=== PATIENT | male | born 1945 | race Caucasian/White ===

== ENCOUNTER 2017-11-17 09:07 | Inpatient (IN) ==
[2017-11-17 10:06] LABS: Baso % (Auto) 0.2 % (0.0-2.0); Eos % (Auto) 0.1 % (0.0-4.0); Hematocrit 35.1 % (39.0-51.0); Hemoglobin 11.7 gm/dL (13.0-17.0); Lymph # (Auto) 0.6 th/mm3 (1.0-4.8); Lymph % (Auto) 7.9 % (9.0-44.0); Mean Corpuscular HGB Conc 33.5 % (32.0-36.0); Mean Corpuscular Hemoglobin 31.2 pg (27.0-34.0); Mean Corpuscular Volume 93.4 fL (80.0-100.0); Mean Platelet Volume 8.2 fL (7.0-11.0); Mono # (Auto) 1.2 th/mm3 (0.0-0.9); Mono % (Auto) 16.3 % (0.0-8.0); Neut # (Auto) 5.5 th/mm3 (1.8-7.7); Neut % (Auto) 75.5 % (16.0-70.0); Platelet Count 179 th/mm3 (150-450); Red Blood Count 3.76 mil/mm3 (4.50-5.90); Red Cell Distribution Width 13.2 % (11.6-17.2); White Blood Count 7.3 th/mm3 (4.0-11.0)
--- NOTE | 2017-11-17 10:13 | XR ---
EXAM DATE: 11/17/2017 12:00 AM EDT AGE/SEX: 72 years / Male INDICATIONS: Fever. states her has been weak and running a fever along with low urine o utput for 3 days. CLINICAL DATA: This is the patient's initial encounter. Patient reports that signs and symptoms have been present for 3 days and indicates a pain score of Nonresponsive. MEDICAL/SURGICAL HISTORY: None. Non-responsive. COMPARISON: No prior exams available for comparison. FINDINGS: Portable AP view of the chest demonstrates a normal-sized cardiac silhouette. Linear density overlies the left lower lung zone. Mild airspace opacity overlies the left lower lung zone and retrocardiac r egion. No pleural effusion or pneumothorax is identified. The bones and soft tissues demonstrate no a cute finding. There are degenerative changes of the thoracic spine. CONCLUSION: Mild patchy airspace opacity in the left lower lung zone. Given the clinical history, this could repr esent an infectious process. Electronically signed by: Mekhi Krause MD 11/17/2017 10:12 AM EDT
[2017-11-17 10:17] LABS: Amorphous Sediment,Urine Few /hpf; Bacteria,Urine Occasional /hpf; Bilirubin,Urine Negative (Negative); Clarity,Urine Cloudy (Clear); Color,Urine Yellow (Yellw/Straw); Glucose,Urine (UA) Negative (Negative); Leukocyte Esterase,Urine Negative (Negative); Mucus,Urine Few /lpf (Occasional); Nitrite,Urine Negative (Negative)
[2017-11-17 10:34] LABS: Alanine Aminotransferase 74 U/L (12-78); Anion Gap 12 meq/L (5-15); Aspartate Aminotransferase 112 U/L (15-37); Blood Urea Nitrogen 29 mg/dL (7-18); Calcium 8.4 mg/dL (8.5-10.1); Carbon Dioxide 23.9 meq/L (21.0-32.0); Chloride 98 meq/L (98-107); Glomerular Filtration Rate 32 mL/min (>89); Glucose,Random 125 mg/dL (74-106); Potassium 3.4 meq/L (3.5-5.1); Sodium 134 meq/L (136-145)
[2017-11-17 10:35] LABS: Alkaline Phosphatase 88 U/L (45-117); Total Protein 6.9 g/dL (6.4-8.2)
[2017-11-17] MEDS ORDERED: Sod Chloride 0.9% Inj 1,000 ML IV.SIG ONE (10:46)
--- NOTE | 2017-11-17 11:09 | ED ---
HPI General Chief complaint: Weakness Stated complaint: Fever Time Seen by Provider: 11/17/17 09:42 Source: patient and family Mode of arrival: ambulatory Limitations: no limitations History of Present Illness HPI Narrative: Per patient's family and patient he has had for fever low-grade 1011-2 for the last 2-3 days, is also being involved with a productive cough of yellowish sputum over the last 3 days as well, the patient has also been experiencing urgency and frequency as well as some urinary dribbling as well. Primary care is [facility] in [place] Patient denies any allergies to medications Past medical history consist of hypercholesterolemia CVA x2, ruptured disc Related Data Home Medications Medication Instructions Recorded Confirmed aspirin-dipyridamole 1 cap PO BID 11/17/17 11/17/17 atorvastatin 40 mg PO DAILY 11/17/17 11/17/17 Previous Rx's Medication Instructions Recorded Saccharomyces boulardii [Florastor] 250 mg PO BID 30 Days #60 cap 11/19/17 Allergies Allergy/AdvReac Type Severity Reaction Status Date / Time No Known Allergies Allergy Unverified 11/17/17 09:28 Review of Systems ROS: all other systems reviewed are negative [facility] Medical History Medical History CVA (cerebral vascular accident) (Acute) Cervical disc disease (Acute) Hyperlipidemia (Acute) Surgical History Surgical History H/O cervical spine surgery (Acute) Family History Family History Other Family history reviewed with no changes Social History Social History Smoking Status: Former smoker How Often Do You Have a Drink Containing Alcohol: 2 to 4 times a month Recent Travel in [facility] within the Last 8 Weeks: No Recent Out of Country Travel within the Last 8 Weeks: No Immunization History Tetanus Immunization: Unsure Exam Narrative Exam Narrative: GENERAL: Elderly male in no acute distress SKIN: Focused skin assessment warm/dry. HEAD: Atraumatic. Normocephalic. EYES: Pupils equal and round. No scleral icterus. No injection or drainage. ENT: No nasal bleeding or discharge. Mucous membranes pink and moist. NECK: Trachea midline. No JVD. CARDIOVASCULAR: Regular rate and rhythm. No murmur appreciated. RESPIRATORY: No accessory muscle use., Left lower lobe crackles appreciated on auscultation. Tidal volume expansion appears equal bilaterally GASTROINTESTINAL: Abdomen soft, non-tender, nondistended.... No rebound guarding or rigidity MUSCULOSKELETAL: No obvious deformities. No clubbing. No cyanosis. No edema. NEUROLOGICAL: Awake and alert. No obvious cranial nerve deficits. Motor grossly within normal limits. Normal speech. PSYCHIATRIC: Appropriate mood and affect; insight and judgment normal. Course Initial Documented Vital Signs Temperature 100.4 F H 11/17/17 09:18 Pulse Rate 86 11/17/17 09:18 Respiratory Rate 18 11/17/17 09:18 Blood Pressure 177/74 H 11/17/17 09:18 Pulse Oximetry 95 11/17/17 09:18 Last Documented Vital Signs Temperature 97.5 F L 11/19/17 16:00 Pulse Rate 70 11/19/17 16:00 Respiratory Rate 20 11/19/17 16:00 Blood Pressure 130/64 11/19/17 16:00 Pulse Oximetry 96 11/19/17 16:00 Medical Decision Making [facility] Narrative Medical decision making narrative: No leukocytosis, no anemia, no abnormal platelet count, no major left shift Chemistry shows normal electrolytes, however abnormal creatinine of 2.04 no previous ones to compare to, AST of 112 2 and ALT of 74 with normal bilirubin and normal alk phos UA consistent with a UTI Chest x-ray read by radiologist shows mild patchy airspace opacity in the left lower lung will admit for obs to [facility] Medical Screen Exam Complete: Yes Emergency Medical Condition: Yes Differential Diagnosis Differential Diagnosis: UTI versus pneumonia versus flu versus sepsis versus electrolyte abnormalities versus Lab Data Result diagrams: 11/19/17 05:25 11/19/17 05:25 Lab Results 11/17/17 11/17/17 11/17/17 Range/Units 09:29 09: 09:29 WBC 7.3 (4.0-11.0) th/mm3 RBC 3.76 L (4.50-5.90) mil/mm3 Hgb 11.7 L (13.0-17.0) gm/dL Hct 35.1 L (39.0-51.0) % MCV 93.4 (80.0-100.0) fL MCH 31.2 (27.0-34.0) pg MCHC 33.5 (32.0-36.0) % RDW 13.2 (11.6-17.2) % Plt Count 179 (150-450) th/mm3 MPV 8.2 (7.0-11.0) fL Neut % (Auto) 75.5 H (16.0-70.0) % Lymph % (Auto) 7.9 L (9.0-44.0) % [place] % (Auto) 16.3 H (0.0-8.0) % Eos % (Auto) 0.1 (0.0-4.0) % Baso % (Auto) 0.2 (0.0-2.0) % Neut # (Auto) 5.5 (1.8-7.7) th/mm3 Lymph # (Auto) 0.6 L (1.0-4.8) th/mm3 [place] # (Auto) 1.2 H (0.0-0.9) th/mm3 Eos # (Auto) 0.0 (0.0-0.4) th/mm3 Baso # (Auto) 0.0 (0.0-0.2) th/mm3 WBC Differential . Differential Comment Auto diff final Sodium 134 L (136-145) meq/L Potassium 3.4 L (3.5-5.1) meq/L Chloride 98 (98-107) meq/L Carbon Dioxide 23.9 (21.0-32.0) meq/L Anion Gap 12 (5-15) meq/L BUN 29 H (7-18) mg/dL Creatinine 2.04 H (0.60-1.30) mg/dL Estimated GFR 32 L (>89) mL/min Random Glucose 125 H (74-106) mg/dL Lactic Acid 1.2 (0.4-2.0) mmol/L Calcium 8.4 L (8.5-10.1) mg/dL Magnesium (1.5-2.5) mg/dL Total Bilirubin 0.7 (0.2-1.0) mg/dL AST 112 H (15-37) U/L ALT 74 (12-78) U/L Alkaline Phosphatase 88 (45-117) U/L Total Protein 6.9 (6.4-8.2) g/dL Albumin 3.0 L (3.4-5.0) g/dL Urine Color (Yellw/Straw) Urine Clarity (Clear) Urine pH (5.0-8.5) Ur Specific [place] (1.002-1.035) Urine Protein (Neg-Trace) mg/dL Urine Glucose (UA) (Negative) mg/dL Urine Ketones (Negative) mg/dL Urine Occult Blood (Negative) Urine Nitrate (Negative) Urine Bilirubin (Negative) Urine Urobilinogen (Less than 2) mg/dL Ur Leukocyte Esterase (Negative) Urine RBC (0-3) /hpf Urine WBC (0-5) /hpf Amorphous Sediment (None) /hpf Urine Bacteria (None) /hpf Urine Mucus (Occasional) /lpf Micro UA Comment Ur Microscopic Review Urine Culture Comments 11/17/17 11/18/17 11/18/17 Range/Units 09:29 05:08 05:08 WBC 5.9 (4.0-11.0) th/mm3 RBC 3.67 L (4.50-5.90) mil/mm3 Hgb 11.4 L (13.0-17.0) gm/dL Hct 34.2 L (39.0-51.0) % MCV 93.2 (80.0-100.0) fL MCH 31.2 (27.0-34.0) pg MCHC 33.4 (32.0-36.0) % RDW 13.2 (11.6-17.2) % Plt Count 165 (150-450) th/mm3 MPV 8.1 (7.0-11.0) fL Neut % (Auto) 73.3 H (16.0-70.0) % Lymph % (Auto) 10.8 (9.0-44.0) % [place] % (Auto) 15.6 H (0.0-8.0) % Eos % (Auto) 0.1 (0.0-4.0) % Baso % (Auto) 0.2 (0.0-2.0) % Neut # (Auto) 4.3 (1.8-7.7) th/mm3 Lymph # (Auto) 0.6 L (1.0-4.8) th/mm3 [place] # (Auto) 0.9 (0.0-0.9) th/mm3 Eos # (Auto) 0.0 (0.0-0.4) th/mm3 Baso # (Auto) 0.0 (0.0-0.2) th/mm3 WBC Differential . Differential Comment Auto diff final Sodium 133 L (136-145) meq/L Potassium 3.1 L (3.5-5.1) meq/L Chloride 98 (98-107) meq/L Carbon Dioxide 22.5 (21.0-32.0) meq/L Anion Gap 13 (5-15) meq/L BUN 25 H (7-18) mg/dL Creatinine 1.79 H (0.60-1.30) mg/dL Estimated GFR 38 L (>89) mL/min Random Glucose 124 H (74-106) mg/dL Lactic Acid (0.4-2.0) mmol/L Calcium 7.7 L (8.5-10.1) mg/dL Magnesium (1.5-2.5) mg/dL Total Bilirubin 0.5 (0.2-1.0) mg/dL AST 117 H (15-37) U/L ALT 77 (12-78) U/L Alkaline Phosphatase 82 (45-117) U/L Total Protein 6.6 (6.4-8.2) g/dL Albumin 2.7 L (3.4-5.0) g/dL Urine Color Yellow (Yellw/Straw) Urine Clarity Cloudy H (Clear) Urine pH 5.0 (5.0-8.5) Ur Specific [place] 1.010 (1.002-1.035) Urine Protein 100 H (Neg-Trace) mg/dL Urine Glucose (UA) Negative (Negative) mg/dL Urine Ketones Trace H (Negative) mg/dL Urine Occult Blood Large H (Negative) Urine Nitrate Negative (Negative) Urine Bilirubin Negative (Negative) Urine Urobilinogen Less than 2 (Less than 2) mg/dL Ur Leukocyte Esterase Negative (Negative) Urine RBC 3 (0-3) /hpf Urine WBC 1 (0-5) /hpf Amorphous Sediment Few H (None) /hpf Urine Bacteria Occasional H (None) /hpf Urine Mucus Few H (Occasional) /lpf Micro UA Comment Culture not ind Ur Microscopic Review Not Reportable Urine Culture Comments Culture not ind 11/18/17 11/19/17 11/19/17 Range/Units 05:08 05:25 05:25 WBC 5.7 (4.0-11.0) th/mm3 RBC 3.54 L (4.50-5.90) mil/mm3 Hgb 11.1 L (13.0-17.0) gm/dL Hct 32.8 L (39.0-51.0) % MCV 92.5 (80.0-100.0) fL MCH 31.2 (27.0-34.0) pg MCHC 33.8 (32.0-36.0) % RDW 13.1 (11.6-17.2) % Plt Count 184 (150-450) th/mm3 MPV 8.2 (7.0-11.0) fL Neut % (Auto) (16.0-70.0) % Lymph % (Auto) (9.0-44.0) % [place] % (Auto) (0.0-8.0) % Eos % (Auto) (0.0-4.0) % Baso % (Auto) (0.0-2.0) % Neut # (Auto) (1.8-7.7) th/mm3 Lymph # (Auto) (1.0-4.8) th/mm3 [place] # (Auto) (0.0-0.9) th/mm3 Eos # (Auto) (0.0-0.4) th/mm3 Baso # (Auto) (0.0-0.2) th/mm3 WBC Differential Differential Comment Sodium 139 (136-145) meq/L Potassium 3.9 D (3.5-5.1) meq/L Chloride 108 H D (98-107) meq/L Carbon Dioxide 21.6 (21.0-32.0) meq/L Anion Gap 9 (5-15) meq/L BUN 23 H (7-18) mg/dL Creatinine 1.47 H (0.60-1.30) mg/dL Estimated GFR 47 L (>89) mL/min Random Glucose 122 H (74-106) mg/dL Lactic Acid (0.4-2.0) mmol/L Calcium 7.8 L (8.5-10.1) mg/dL Magnesium 2.0 (1.5-2.5) mg/dL Total Bilirubin (0.2-1.0) mg/dL AST (15-37) U/L ALT (12-78) U/L Alkaline Phosphatase (45-117) U/L Total Protein (6.4-8.2) g/dL Albumin (3.4-5.0) g/dL Urine Color (Yellw/Straw) Urine Clarity (Clear) Urine pH (5.0-8.5) Ur Specific [place] (1.002-1.035) Urine Protein (Neg-Trace) mg/dL Urine Glucose (UA) (Negative) mg/dL Urine Ketones (Negative) mg/dL Urine Occult Blood (Negative) Urine Nitrate (Negative) Urine Bilirubin (Negative) Urine Urobilinogen (Less than 2) mg/dL Ur Leukocyte Esterase (Negative) Urine RBC (0-3) /hpf Urine WBC (0-5) /hpf Amorphous Sediment (None) /hpf Urine Bacteria (None) /hpf Urine Mucus (Occasional) /lpf Micro UA Comment Ur Microscopic Review Urine Culture Comments Imaging Data Radiologist's impression: Chest X-Ray 11/17/17 00:00 CONCLUSION: Mild patchy airspace opacity in the left lower lung zone. Given the clinical history, this could represent an infectious process. Discharge Plan Discharge Disposition Patient Disposition: 30 Still Patient Discharge Condition Condition: Stable Discharge Order Discharge Orders: Discharge Order (Routine); Ordered 11/19/17 Ordered By: Junior Lopez Discharge Details Anticipated Discharge Date: 11/19/17 Discharge Comment: patient will need too seek medical attention if experiences abd pain or diarrhea continues more than 3 days. Diagnosis: Acute UTI, Left lower lobe pneumonia, Acute renal insufficiency Physicians Team ED Provider: Suraj Palumbo Primary Care Provider: UNKNOWN, Attending Provider: Junior Lopez Other Providers: [employer] Status ED Status: Left Department Discharge Information Discharge Date/Time: 11/17/17 15:27
[2017-11-17] MEDS ORDERED: Bisacodyl 10 MG Supp RECTAL PRN (14:06)
[2017-11-17] MEDS ORDERED: Azithromycin 250 MG Tablet PO SCH (14:15)
[2017-11-17] MEDS ORDERED: Sodium Chloride 0.9% 2 ML Flush PRN IV.FLUSH (14:19)
--- NOTE | 2017-11-17 14:36 | P.HPIM ---
[facility] Chief Complaint: Weakness, urinary frequency, cough History of Present Illness: 72-year-old male with a medical history significant for cervical disc disease, CVA who presented to the emergency room with his complaining of worsening weakness, chills, cough, and urinary frequency. Patient is a poor historian. He deferred the history to his . Symptoms started about for 5 days ago. Over the past couple of days, the weakness has gotten worse with persistent urinary frequency. He has had cold sweats. He does have a cough but denies shortness of breath currently. He denies any chest pain. - Diagnosis (1) Acute UTI (2) Left lower lobe pneumonia (3) Acute renal insufficiency Inpatient Certification: I certify that the inpatient services were ordered in accordance with Medicare regulations governing the order. 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 - Medical History Medical History: Medical History (Last Updated 11/17/17 @ 15:02 by Colleen Parkinson MD) CVA (cerebral vascular accident) Cervical disc disease Hyperlipidemia - Surgical History Surgical History: Surgical History (Last Updated 11/17/17 @ 15:03 by Colleen Parkinson MD) H/O cervical spine surgery - Family History Family History: Family History (Last Updated 11/17/17 @ 15:04 by Colleen Parkinson MD) Other Family history reviewed with no changes - Social History I have reviewed the patient's Social History: Yes - Tobacco History Tobacco Use In Past 30 Days: No Smoking Status: Former smoker - Alcohol History How Often Do You Have a Drink Containing Alcohol: 2 to 4 times a month - Travel History Recent Travel in the [place] Within the Last 8 Weeks: No Recent Travel Out of the Country Within the Last 8 Weeks: No - Immunization History Tetanus Immunization: Unsure Medications and Allergies Active Medications: Active Medications Al Hydroxide/Mg Hydroxide (Milk Of Magnmargie Liq) 30 ml PO Q12H PRN PRN Reason: Mild Constipation Atorvastatin Calcium (Lipitor) 40 mg PO DAILY NANCY Azithromycin (Zithromax) 500 mg PO DAILY [facility] Bisacodyl (Dulcolax Supp) 10 mg RECTAL DAILY PRN PRN Reason: SEVERE CONSITIPATION Dipyridamole/Aspirin (Aggrenox) 1 cap PO BID [facility] Heparin Sodium (Porcine) (Heparin Inj) 5,000 units SQ Q12HR [facility] Sodium Chloride (Ns Inj) 1,000 mls @ 100 mls/hr IV.CONT .Q10H NANCY Stop: 11/18/17 14:14 Ceftriaxone Sodium 1,000 mg/ (Sodium Chloride) 100 mls @ 200 mls/hr IV.SIG Q24H [facility] Lactulose (Lactulose Liq) 30 ml PO DAILY PRN PRN Reason: SEVERE CONSITIPATION Lisinopril (Prinivil) 5 mg PO DAILY [facility] Ondansetron HCl (Zofran Inj) 4 mg IV.PUSH Q6H PRN PRN Reason: NAUSEA OR VOMITING Sennosides (Senokot) 17.2 mg PO Q12H PRN PRN Reason: Moderate Constipation Sodium Chloride (Ns Flush) 2 ml IV.FLUSH BID [facility] Sodium Chloride (Ns Flush) 2 ml IV.FLUSH PRN PRN PRN Reason: FLUSH AFTER USING IV ACCESS Allergies Allergy/AdvReac Type Severity Reaction Status Date / Time No Known Allergies Allergy Unverified 11/17/17 09:28 Home Medications Medication Instructions Recorded Confirmed Type aspirin-dipyridamole 1 cap PO BID 11/17/17 11/17/17 History atorvastatin 40 mg PO DAILY 11/17/17 11/17/17 History lisinopril 5 mg PO DAILY 11/17/17 11/17/17 History Exam Vital signs: Vital Signs 11/17/17 09:18 11/17/17 11:27 11/17/17 13:25 Temperature 100.4 F H 99.7 F H Pulse Rate 86 90 85 Respiratory Rate 18 18 18 Blood Pressure 177/74 H 166/85 H 168/79 H Pulse Oximetry 95 Intake & Output 11/16/17 11/17/17 11/17/17 18:59 06:59 18:59 Intake Total 1100 / 1100 Balance 1100 / 1100 Weight 77.111 kg Intake: IV 1100 / 1100 NS Inj 1,000 ML @ Wide Open IV. 1000 / 1000 SIG BOLUS ONE Rx#:[id number] Rocephin Inj 2,000 MG In NS Inj 100 / 100 100 ML @ 200 mls/hr IV.SIG ONCE ONE Rx#:[id number] Narrative: GENERAL: Patient is in no acute distress. He defers history to his . CARDIOVASCULAR: Normal rate and regular rhythm without murmurs, gallops, or rubs. RESPIRATORY: Good respiratory efforts. Rhonchi on the left base otherwise clear to auscultation. GASTROINTESTINAL: Abdomen soft, non-tender, non-distended. Normal active bowel sounds MUSCULOSKELETAL: Extremities without cyanosis, or edema. NEURO: Alert & Oriented x4 to person, place, time, situation. Moves all ext x4. Generalized weakness PSYCH: Appropriate mood and affect. Results - Labs CBC & Chem 7: 11/17/17 09:29 11/17/17 09:29 Labs: Short CBC 11/17/17 Range/Units 09:29 WBC 7.3 (4.0-11.0) th/mm3 Hgb 11.7 L (13.0-17.0) gm/dL Hct 35.1 L (39.0-51.0) % Plt Count 179 (150-450) th/mm3 BMP 11/17/17 09:29 Sodium 134 L Potassium 3.4 L Chloride 98 Carbon Dioxide 23.9 BUN 29 H Creatinine 2.04 H Calcium 8.4 L Liver Function 11/17/17 Range/Units 09:29 Total Bilirubin 0.7 (0.2-1.0) mg/dL AST 112 H (15-37) U/L ALT 74 (12-78) U/L Alkaline Phosphatase 88 (45-117) U/L Albumin 3.0 L (3.4-5.0) g/dL Urine 11/17/17 Range/Units 09:29 Urine Color Yellow (Yellw/Straw) Urine Clarity Cloudy H (Clear) Urine pH 5.0 (5.0-8.5) Ur Specific [place] 1.010 (1.002-1.035) Urine Protein 100 H (Neg-Trace) mg/dL Urine Glucose (UA) Negative (Negative) mg/dL - Imaging Impressions Chest X-Ray 11/17/17 00:00 CONCLUSION: Mild patchy airspace opacity in the left lower lung zone. Given the clinical history, this could represent an infectious process. Caprini VTE Risk Assessment Caprini VTE Risk Assessment: Moderate/High Risk (score >= 2) Caprini Risk Assessment Model: Point Value = 1 Point Value = 2 Point Value = 3 Point Value = 5 Age 41-60 Minor surgery BMI > 25 kg/m2 Swollen legs Varicose veins or History of unexplained or recurrent spontaneous Oral contraceptives or hormone replacement Sepsis (< 1 month) Serious lung disease, including pneumonia (< 1 month) Abnormal pulmonary function Acute myocardial infarction Congestive heart failure (< 1 month) History of inflammatory bowel disease Medical patient at bed rest Age 61-74 Arthroscopic surgery Major open surgery (> 45 min) Laparoscopic surgery (> 45 min) Malignancy Confined to bed (> 72 hours) Immobilizing plaster cast Central venous access Age >= 75 History of VTE Family history of VTE Factor V Leiden Prothrombin 10723C Lupus anticoagulant Anticardiolipin antibodies Elevated serum homocysteine Heparin-induced thrombocytopenia Other congenital or acquired thrombophilia Stroke (< 1 month) Elective arthroplasty Hip, pelvis, or leg fracture Acute spinal cord injury (< 1 month) Prophylaxis Regimen: Total Risk Factor Score Risk Level Prophylaxis Regimen 0-1 Low Early ambulation 2 Moderate Order ONE of the following: *Sequential Compression Device (SCD) *Heparin 5000 units SQ BID 3-4 Higher Order ONE of the following medications: *Heparin 5000 units SQ TID *Enoxaparin/Lovenox 40 mg SQ daily (WT < 150 kg, CrCl > 30 mL/min) *Enoxaparin/Lovenox 30 mg SQ daily (WT < 150 kg, CrCl > 10-29 mL/min) *Enoxaparin/Lovenox 30 mg SQ BID (WT < 150 kg, CrCl > 30 mL/min) AND/OR *Sequential Compression Device (SCD) 5 or more Highest Order ONE of the following medications: *Heparin 5000 units SQ TID (Preferred with Epidurals) *Enoxaparin/Lovenox 40 mg SQ daily (WT < 150 kg, CrCl > 30 mL/min) *Enoxaparin/Lovenox 30 mg SQ daily (WT < 150 kg, CrCl > 10-29 mL/min) *Enoxaparin/Lovenox 30 mg SQ BID (WT < 150 kg, CrCl > 30 mL/min) AND *Sequential Compression Device (SCD) Assessment and Plan - Assessment (1) Acute UTI Code(s): N39.0 - Urinary tract infection, site not specified Status: Acute (2) Left lower lobe pneumonia Code(s): J18.1 - Lobar pneumonia, unspecified organism Status: Acute (3) Acute renal insufficiency Code(s): N28.9 - Disorder of kidney and ureter, unspecified Status: Acute - Plan 72-year-old male with history of CVA presented with worsening weakness, urinary frequency. Workup is consistent with left lower lobe pneumonia, probable UTI, acute kidney injury. Community-acquired left lower lobe pneumonia: - Antibiotics with Rocephin and azithromycin - Supplemental oxygen as needed - Check flu, pneumococcal and Legionella antigen Probable UTI: - Urinalysis shows bacteria. He is symptomatic. - On Rocephin as above. Acute renal failure: Likely secondary to dehydration. - Continue IV fluid. - Avoid nephrotoxins. - Follow-up BMP in a.m. Generalized weakness: - Likely secondary to acute infectious issues above. - Physical therapy to evaluate. History of CVA: - Continue Aggrenox Hypertension: Continue lisinopril GI prophylaxis: Stool softener PRN constipation. DVT PPx: Heparin (2) Left lower lobe pneumonia Qualifiers: Pneumonia type: due to unspecified organism Qualified Code(s): J18.1 - Lobar pneumonia, unspecified organism
[2017-11-17] MEDS: Sod Chloride 0.9% Inj 1,000 ML IV.CONT SCH (16:08)
[2017-11-17] MEDS: Heparin - SQ 10,000 UNITS/ML Vial SQ SCH ×2 (16:18→20:18)
[2017-11-17] MEDS: Azithromycin 250 MG Tablet PO SCH (16:18)
[2017-11-17] MEDS: Sodium Chloride 0.9% 2 ML Flush BID IV.FLUSH SCH (20:04)
[2017-11-17] MEDS ORDERED: Acetaminophen 325 MG Tablet PO PRN (22:36)
[2017-11-18] MEDS: Sod Chloride 0.9% Inj 1,000 ML IV.CONT SCH ×2 (03:35→10:21)
[2017-11-18 05:37] LABS: Baso % (Auto) 0.2 % (0.0-2.0); Eos % (Auto) 0.1 % (0.0-4.0); Hematocrit 34.2 % (39.0-51.0); Hemoglobin 11.4 gm/dL (13.0-17.0); Lymph # (Auto) 0.6 th/mm3 (1.0-4.8); Lymph % (Auto) 10.8 % (9.0-44.0); Mean Corpuscular HGB Conc 33.4 % (32.0-36.0); Mean Corpuscular Hemoglobin 31.2 pg (27.0-34.0); Mean Corpuscular Volume 93.2 fL (80.0-100.0); Mean Platelet Volume 8.1 fL (7.0-11.0); Mono # (Auto) 0.9 th/mm3 (0.0-0.9); Mono % (Auto) 15.6 % (0.0-8.0); Neut # (Auto) 4.3 th/mm3 (1.8-7.7); Neut % (Auto) 73.3 % (16.0-70.0); Platelet Count 165 th/mm3 (150-450); Red Blood Count 3.67 mil/mm3 (4.50-5.90); Red Cell Distribution Width 13.2 % (11.6-17.2); White Blood Count 5.9 th/mm3 (4.0-11.0)
[2017-11-18 06:02] LABS: Albumin 2.7 g/dL (3.4-5.0); Anion Gap 13 meq/L (5-15); Aspartate Aminotransferase 117 U/L (15-37); Blood Urea Nitrogen 25 mg/dL (7-18); Calcium 7.7 mg/dL (8.5-10.1); Carbon Dioxide 22.5 meq/L (21.0-32.0); Chloride 98 meq/L (98-107); Glomerular Filtration Rate 38 mL/min (>89); Glucose,Random 124 mg/dL (74-106); Potassium 3.1 meq/L (3.5-5.1); Sodium 133 meq/L (136-145)
[2017-11-18 06:04] LABS: Alanine Aminotransferase 77 U/L (12-78)
[2017-11-18 06:06] LABS: Alkaline Phosphatase 82 U/L (45-117); Total Protein 6.6 g/dL (6.4-8.2)
[2017-11-18] MEDS: Heparin - SQ 10,000 UNITS/ML Vial SQ SCH ×2 (08:22→19:59)
[2017-11-18] MEDS: Azithromycin 250 MG Tablet PO SCH (08:22)
[2017-11-18] MEDS: Lisinopril 5 MG Tablet PO SCH (08:22)
[2017-11-18] MEDS: Sodium Chloride 0.9% 2 ML Flush BID IV.FLUSH SCH ×2 (08:31→20:00)
--- NOTE | 2017-11-18 13:52 | P.PNIM ---
Subjective Interval history: Patient fell last night. He states he lost his balance. He denies any injuries. Denies any pain. Physical Exam Vital signs: Vital Signs 11/17/17 16:00 11/17/17 17:30 11/17/17 18:00 Temperature 98.1 F 98.7 F 98.7 F Pulse Rate 96 H 87 85 Respiratory Rate 23 22 Blood Pressure 150/60 H 118/63 118/63 Pulse Oximetry 98 98 11/17/17 19:45 11/17/17 20:00 11/17/17 20:45 Temperature 100.7 F H 100.7 F H 98.2 F Pulse Rate 91 H 87 90 Respiratory Rate 20 20 18 Blood Pressure 165/65 H 165/65 H 185/83 H Pulse Oximetry 93 L 93 L 95 11/17/17 21:45 11/17/17 22:45 11/18/17 00:00 Temperature 100.6 F H 99.1 F 99 F Pulse Rate 83 83 84 Respiratory Rate 16 18 20 Blood Pressure 153/74 H 189/80 H 189/81 H Pulse Oximetry 95 95 95 11/18/17 04:00 11/18/17 08:00 11/18/17 12:00 Temperature 99.7 F H 97.9 F 97.8 F Pulse Rate 84 75 74 Respiratory Rate 20 21 22 Blood Pressure 153/78 H 160/70 H 120/56 L Pulse Oximetry 93 L 97 98 Intake & Output 11/17/17 11/18/17 11/18/17 18:59 06:59 18:59 Intake Total 1280 / 1280 1210 / 1210 700 / 700 Output Total 500 / 500 Balance 1280 / 1280 710 / 710 700 / 700 Weight 77.111 kg 77.111 kg Intake: IV 1100 / 1100 1000 / 1000 700 / 700 NS Inj 1,000 ML @ 100 mls/hr IV 1000 / 1000 600 / 600 .CONT .Q10H NANCY Rx#:[id number] NS Inj 1,000 ML @ Wide Open IV. 1000 / 1000 SIG BOLUS ONE Rx#:[id number] Rocephin Inj 1,000 MG In NS Inj 100 / 100 100 ML @ 200 mls/hr IV.SIG Q24H NANCY Rx#:[id number] Rocephin Inj 2,000 MG In NS Inj 100 / 100 100 ML @ 200 mls/hr IV.SIG ONCE ONE Rx#:[id number] Oral 180 / 180 210 / 210 Output: Urine 300 / 300 Stool 200 / 200 Other: # Voids 300 3 Date of Last Bowel Movement 11/16/17 11/17/17 11/17/17 Narrative: GENERAL: Patient is in no acute distress. He defers history to his . CARDIOVASCULAR: Normal rate and regular rhythm without murmurs, gallops, or rubs. RESPIRATORY: Good respiratory efforts. Rhonchi on the left base otherwise clear to auscultation. GASTROINTESTINAL: Abdomen soft, non-tender, non-distended. Normal active bowel sounds MUSCULOSKELETAL: Extremities without cyanosis, or edema. NEURO: Alert & Oriented x4 to person, place, time, situation. Moves all ext x4. Generalized weakness PSYCH: Appropriate mood and affect. Results - Labs CBC & Chem 7: 11/18/17 05:08 11/18/17 05:08 Laboratory Results - last 24 hr 11/18/17 11/18/17 11/18/17 05:08 05:08 05:08 WBC 5.9 RBC 3.67 L Hgb 11.4 L Hct 34.2 L MCV 93.2 MCH 31.2 MCHC 33.4 RDW 13.2 Plt Count 165 MPV 8.1 Neut % (Auto) 73.3 H Lymph % (Auto) 10.8 [place] % (Auto) 15.6 H Eos % (Auto) 0.1 Baso % (Auto) 0.2 Neut # (Auto) 4.3 Lymph # (Auto) 0.6 L [place] # (Auto) 0.9 Eos # (Auto) 0.0 Baso # (Auto) 0.0 WBC Differential . Differential Comment Auto diff final Sodium 133 L Potassium 3.1 L Chloride 98 Carbon Dioxide 22.5 Anion Gap 13 BUN 25 H Creatinine 1.79 H Estimated GFR 38 L Random Glucose 124 H Calcium 7.7 L Magnesium 2.0 Total Bilirubin 0.5 AST 117 H ALT 77 Alkaline Phosphatase 82 Total Protein 6.6 Albumin 2.7 L Microbiology 11/17/17 15:55 Urine - Clean Catch Urine Streptococcus pneumoniae Antigen ( M - Final Presumptive negative for streptococcus pneumoniae antigen, suggesting no current or recent infection. Infection due to Streptococcus pneumoniae cannot be ruled out since the antigen present in the sample may be below the detection limit of the test. 11/17/17 15:55 Urine - Clean Catch Urine Legionella Antigen - Final Presumptive negative for Legionella pneumophila serogroup 1 antigen in urine, suggesting no recent or recurrent infection. Infection due to Legionella cannot be ruled out since other serogroups and species may cause disease, antigen may not be present in urine in early infection, and the level of antigen present in the urine may be below the detection limit of the test. 11/17/17 16:35 Nasal Wash Influenza Types A,B Antigen - Final Negative for FLU A and B antigen Infection due to influenza A or B cannot be ruled out since the antigen present in the sample may be below the detection limit of the test. Assessment and Plan - Assessment (1) Acute UTI Code(s): N39.0 - Urinary tract infection, site not specified Status: Acute (2) Left lower lobe pneumonia Code(s): J18.1 - Lobar pneumonia, unspecified organism Status: Acute (3) Acute renal insufficiency Code(s): N28.9 - Disorder of kidney and ureter, unspecified Status: Acute - Plan 72-year-old male with history of CVA presented with worsening weakness, urinary frequency. Workup is consistent with left lower lobe pneumonia, probable UTI, acute kidney injury. Community-acquired left lower lobe pneumonia: - Antibiotics with Rocephin and azithromycin - Supplemental oxygen as needed -Flu negative, check pneumococcal and Legionella antigen Probable UTI: - Urinalysis shows bacteria. He is symptomatic. - On Rocephin as above. Acute renal failure: Likely secondary to dehydration. - Continue IV fluid. - Avoid nephrotoxins. - Follow-up BMP in a.m. Generalized weakness: - Likely secondary to acute infectious issues above. - Physical therapy to evaluate. History of CVA/mild gait disturbance: - Continue Aggrenox - Continue physical therapy Hypertension: Continue lisinopril Hypokalemia: Replace and monitor. GI prophylaxis: Stool softener PRN constipation. DVT PPx: Heparin (2) Left lower lobe pneumonia Qualifiers: Pneumonia type: due to unspecified organism Qualified Code(s): J18.1 - Lobar pneumonia, unspecified organism
[2017-11-19 06:55] LABS: Hematocrit 32.8 % (39.0-51.0); Hemoglobin 11.1 gm/dL (13.0-17.0); Mean Corpuscular HGB Conc 33.8 % (32.0-36.0); Mean Corpuscular Hemoglobin 31.2 pg (27.0-34.0); Mean Corpuscular Volume 92.5 fL (80.0-100.0); Mean Platelet Volume 8.2 fL (7.0-11.0); Platelet Count 184 th/mm3 (150-450); Red Blood Count 3.54 mil/mm3 (4.50-5.90); Red Cell Distribution Width 13.1 % (11.6-17.2); White Blood Count 5.7 th/mm3 (4.0-11.0)
[2017-11-19 07:11] LABS: Calcium 7.8 mg/dL (8.5-10.1); Carbon Dioxide 21.6 meq/L (21.0-32.0); Potassium 3.9 meq/L (3.5-5.1)
[2017-11-19] MEDS: Lisinopril 5 MG Tablet PO SCH (09:08)
[2017-11-19] MEDS: Azithromycin 250 MG Tablet PO SCH (09:08)
[2017-11-19] MEDS: Heparin - SQ 10,000 UNITS/ML Vial SQ SCH (09:09)
[2017-11-19] MEDS: Sodium Chloride 0.9% 2 ML Flush BID IV.FLUSH SCH (09:09)
[2017-11-19 09:30] VITALS: RESP 20
--- NOTE | 2017-11-19 14:49 | P.PNIM ---
Subjective Interval history: Patient says he is feeling right. Denies any chest pain or shortness of breath. Feels like going home. He has had some loose stools. Denies any bloody diarrhea. Denies any abdominal pain. Physical Exam Vital signs: Vital Signs 11/18/17 16:00 11/18/17 20:00 11/19/17 00:00 Temperature 97.8 F 98.5 F 97.7 F Pulse Rate 77 79 76 Respiratory Rate 22 18 18 Blood Pressure 120/56 L 129/61 127/76 Pulse Oximetry 98 94 L 94 L 11/19/17 04:00 11/19/17 08:00 11/19/17 10:00 Temperature 98.4 F 97.7 F Pulse Rate 70 71 65 Respiratory Rate 18 20 Blood Pressure 144/65 H 136/68 Pulse Oximetry 94 L 96 Intake & Output 11/18/17 11/19/17 11/19/17 18:59 06:59 18:59 Intake Total 1380 / 1380 2480 / 2480 100 / 100 Output Total 2300 / 2300 Balance 1380 / 1380 180 / 180 100 / 100 Weight 78 kg Intake: IV 700 / 700 2000 / 2000 100 / 100 NS + KCl 20 mEq Inj 1,000 ML @ 2000 / 2000 100 mls/hr IV.CONT .Q10H NANCY Rx #:[id number] NS Inj 1,000 ML @ 100 mls/hr IV 600 / 600 .CONT .Q10H NANCY Rx#:[id number] Rocephin Inj 1,000 MG In NS Inj 100 / 100 100 / 100 100 ML @ 200 mls/hr IV.SIG Q24H NANCY Rx#:[id number] Oral 680 / 680 480 / 480 Output: Urine 2000 / 2000 Stool 300 / 300 Other: # Voids 4 4 Date of Last Bowel Movement 11/17/17 11/18/17 11/17/17 # Bowel Movements 1 1 Narrative: GENERAL: Comfortable. Alert and oriented x3. SKIN: Warm and dry. HEAD: Normocephalic. EYES: No scleral icterus. No injection or drainage. NECK: Supple, trachea midline. No JVD. CARDIOVASCULAR: Regular rate and rhythm without murmurs, gallops, or rubs. RESPIRATORY: Breath sounds equal bilaterally. No accessory muscle use. GASTROINTESTINAL: Abdomen soft, non-tender, nondistended. MUSCULOSKELETAL: No cyanosis, or edema. BACK: Nontender without obvious deformity. No CVA tenderness. Results - Labs CBC & Chem 7: 11/19/17 05:25 11/19/17 05:25 Laboratory Results - last 24 hr 11/19/17 11/19/17 05:25 05:25 WBC 5.7 RBC 3.54 L Hgb 11.1 L Hct 32.8 L MCV 92.5 MCH 31.2 MCHC 33.8 RDW 13.1 Plt Count 184 MPV 8.2 Sodium 139 Potassium 3.9 D Chloride 108 H D Carbon Dioxide 21.6 Anion Gap 9 BUN 23 H Creatinine 1.47 H Estimated GFR 47 L Random Glucose 122 H Calcium 7.8 L Assessment and Plan - Assessment (1) Acute UTI Code(s): N39.0 - Urinary tract infection, site not specified Status: Acute (2) Left lower lobe pneumonia Code(s): J18.1 - Lobar pneumonia, unspecified organism Status: Acute (3) Acute renal insufficiency Code(s): N28.9 - Disorder of kidney and ureter, unspecified Status: Acute - Plan 72-year-old male with history of CVA presented with worsening weakness, urinary frequency. Workup is consistent with left lower lobe pneumonia, probable UTI, acute kidney injury. //Community-acquired left lower lobe pneumonia: - Antibiotics with Rocephin and azithromycin - Supplemental oxygen as needed -Flu negative, check pneumococcal and Legionella antigen = Pneumococcal and Legionella antigen negative. Much improved. Will discharge home on Levaquin. //Loose stools. //Antibiotic associated diarrhea White count is not elevated. Patient without abdominal pain. Abdomen nontender. Will discharge home on Florastor. Patient is advised to seek medical attention if diarrhea continues beyond 3 days or if he experiences abdominal pain. //Unlikely UTI: -No white blood cells. Culture not indicated. Patient will be on antibiotics for pneumonia nonetheless. //Acute renal failure: Likely secondary to dehydration. - Continue IV fluid. - Avoid nephrotoxins. -Renal function improving. Encourage fluids = Discontinue lisinopril. Patient will need to follow with primary care as outpatient within the next week. //Generalized weakness: - Likely secondary to acute infectious issues above. - Physical therapy to evaluate. //History of CVA/mild gait disturbance: - Continue Aggrenox - Continue physical therapy //Hypertension: Continue lisinopril //Hypokalemia: Replace and monitor. = Resolved after replacement. //GI prophylaxis: Stool softener PRN constipation. 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 (2) Left lower lobe pneumonia Qualifiers: Pneumonia type: due to unspecified organism Qualified Code(s): J18.1 - Lobar pneumonia, unspecified organism
--- NOTE | 2017-11-19 14:52 | P.DS ---
Date of admission: 11/17/17 14:22 Primary care physician: UNKNOWN Brief History from admission: 72-year-old male with a medical history significant for cervical disc disease, CVA who presented to the emergency room with his complaining of worsening weakness, chills, cough, and urinary frequency. Patient is a poor historian. He deferred the history to his . Symptoms started about for 5 days ago. Over the past couple of days, the weakness has gotten worse with persistent urinary frequency. He has had cold sweats. He does have a cough but denies shortness of breath currently. He denies any chest pain. DS: Diagnosis - Discharge Diagnosis (1) Acute UTI Status: Acute (2) Left lower lobe pneumonia Status: Acute (3) Acute renal insufficiency Status: Acute DS: Summary Hospital Course: Patient presented with acute kidney injury with creatinine 2.0 on admission. This improved with IV fluids. Patient also found to have community T acquired left lower lobe pneumonia on chest x-ray as below. Patient was started on broad -spectrum antibiotics with improvement. Patient did experience antibiotic associated diarrhea on day 2 of hospitalization. Patient will be started on Florastor, and is advised to follow-up with primary care within the next week. For problem based summary from most recent progress note, please see below. 72-year-old male with history of CVA presented with worsening weakness, urinary frequency. Workup is consistent with left lower lobe pneumonia, probable UTI, acute kidney injury. //Community-acquired left lower lobe pneumonia: - Antibiotics with Rocephin and azithromycin - Supplemental oxygen as needed -Flu negative, check pneumococcal and Legionella antigen = Pneumococcal and Legionella antigen negative. Much improved. Will discharge home on Levaquin. //Loose stools. //Antibiotic associated diarrhea White count is not elevated. Patient without abdominal pain. Abdomen nontender. Will discharge home on Florastor. Patient is advised to seek medical attention if diarrhea continues beyond 3 days or if he experiences abdominal pain. //Unlikely UTI: -No white blood cells. Culture not indicated. Patient will be on antibiotics for pneumonia nonetheless. //Acute renal failure: Likely secondary to dehydration. - Continue IV fluid. - Avoid nephrotoxins. -Renal function improving. Encourage fluids = Discontinue lisinopril. Patient will need to follow with primary care as outpatient within the next week. //Generalized weakness: - Likely secondary to acute infectious issues above. - Physical therapy to evaluate. //History of CVA/mild gait disturbance: - Continue Aggrenox - Continue physical therapy //Hypertension: Continue lisinopril //Hypokalemia: Replace and monitor. = Resolved after replacement. //GI prophylaxis: Stool softener PRN constipation. 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. - Time Spent with Patient Total time spent providing and/or coordinating discharge services: Greater than 30 minutes Exam Vital signs: Vital Signs 11/18/17 16:00 11/18/17 20:00 11/19/17 00:00 Temperature 97.8 F 98.5 F 97.7 F Pulse Rate 77 79 76 Respiratory Rate 22 18 18 Blood Pressure 120/56 L 129/61 127/76 Pulse Oximetry 98 94 L 94 L 11/19/17 04:00 11/19/17 08:00 11/19/17 10:00 Temperature 98.4 F 97.7 F Pulse Rate 70 71 65 Respiratory Rate 18 20 Blood Pressure 144/65 H 136/68 Pulse Oximetry 94 L 96 Intake & Output 11/18/17 11/19/17 11/19/17 18:59 06:59 18:59 Intake Total 1380 / 1380 2480 / 2480 100 / 100 Output Total 2300 / 2300 Balance 1380 / 1380 180 / 180 100 / 100 Weight 78 kg Intake: IV 700 / 700 2000 / 2000 100 / 100 NS + KCl 20 mEq Inj 1,000 ML @ 2000 / 2000 100 mls/hr IV.CONT .Q10H NANCY Rx #:[id number] NS Inj 1,000 ML @ 100 mls/hr IV 600 / 600 .CONT .Q10H NANCY Rx#:[id number] Rocephin Inj 1,000 MG In NS Inj 100 / 100 100 / 100 100 ML @ 200 mls/hr IV.SIG Q24H NANCY Rx#:[id number] Oral 680 / 680 480 / 480 Output: Urine 1999 / 1999 Stool 300 / 300 Other: # Voids 4 4 Date of Last Bowel Movement 11/17/17 11/18/17 11/17/17 # Bowel Movements 1 1 Results Procedures completed during hospitalization: No invasive procedures. Labs on day of discharge: Labs from last 24 hours 11/19/17 11/19/17 05:25 05:25 WBC 5.7 RBC 3.54 L Hgb 11.1 L Hct 32.8 L MCV 92.5 MCH 31.2 MCHC 33.8 RDW 13.1 Plt Count 184 MPV 8.2 Sodium 139 Potassium 3.9 D Chloride 108 H D Carbon Dioxide 21.6 Anion Gap 9 BUN 23 H Creatinine 1.47 H Estimated GFR 47 L Random Glucose 122 H Calcium 7.8 L - Impressions ITS Impressions Chest X-Ray 11/17/17 00:00 CONCLUSION: Mild patchy airspace opacity in the left lower lung zone. Given the clinical history, this could represent an infectious process. Discharge Plan - Discharge Disposition Patient Disposition: Discharge Home - Discharge Condition Condition: Stable - Discharge Order Discharge Orders: Discharge Order (Routine); Ordered 11/19/17 Ordered By: Junior Lopez - Discharge Details Anticipated Discharge Date: 11/19/17 Discharge Comment: patient will need too seek medical attention if experiences abd pain or diarrhea continues more than 3 days. - Physicians Team Primary Care Provider: UNKNOWN, Attending Provider: Junior Lopez Other Providers: Meek Eden
[2017-11-19 19:37] VITALS: BP 130/64; PULSE 70; TEMP 97.5; O2SAT 96
== END 2017-11-19 17:18 | disposition home or self-care (01) ==
LOC: NEPC 09:07 → NEDA 14:22 → N04 15:42
PROVIDERS: ADMIT Internal Medicine; ATTEND Internal Medicine
DX: Z86.73 Personal history of transient ischemic attack (TIA), and cerebral infarction without residual deficits; T36.95XA Adverse effect of unspecified systemic antibiotic, initial encounter; R26.9 Unspecified abnormalities of gait and mobility; E78.5 Hyperlipidemia, unspecified; J18.1 Lobar pneumonia, unspecified organism; E87.6 Hypokalemia; E86.0 Dehydration; Z87.891 Personal history of nicotine dependence; I10 Essential (primary) hypertension; K52.1 Toxic gastroenteritis and colitis; N39.0 Urinary tract infection, site not specified; W19.XXXA Unspecified fall, initial encounter; M50.90 Cervical disc disorder, unspecified, unspecified cervical region; E78.00 Pure hypercholesterolemia, unspecified; N17.9 Acute kidney failure, unspecified